=== PATIENT | female | born 1955 | race Caucasian/White ===

== ENCOUNTER → 2024-09-13 | Outpatient (CLI) | payer MEDICARE, BC, SELFPAY ==
--- NOTE | 2024-09-13 13:20 | XR_ITS ---
Examination: Bone densitometry Date and time of exam:September 13, 2024 1336 hours INDICATIONS: Menopause age [age] and vitamin D 6 weeks Technique: Lumbar spine and hip total bone mineralization values of an calculated. Peak reference and age match control results have been displayed. Findings: Lumbar spine total bone mineralization is1.412 gm/cm2. This is 3.3 standard deviations above peak reference. This is 5.4 standard deviations above age-matched controls. Hip total bone mineralization is 0.95 gm/cm2 This is 0.4 standard deviations above peak reference. This is 1.8 standard deviations above age-matched controls Impression: There is normal mineralization based on lumbar spine measurements. There is normal mineralization based on hip measurements Lumbar mineralization is increase 6.6% compared with February 08, 2015 Hip mineralization is increase 4.9% compared with February 08, 2015
== END | disposition home or self-care (01) ==
LOC: CDIM 13:05
PROVIDERS: Referring Provider Nurse Practitioner Family; Visit Provider Nurse Practitioner Family
DX: M81.0 Age-related osteoporosis without current pathological fracture (principal)
CPT/HCPCS: 77080

== ENCOUNTER → 2024-09-18 | Outpatient (CLI) | payer MEDICARE, BC, SELFPAY ==
[2024-09-25 06:53] LABS: ANA Screen, IFA NEGATIVE (NEGATIVE)
== END | disposition home or self-care (01) ==
LOC: COPL 10:55
PROVIDERS: PCP Family Medicine; Referring Provider Dermatology; Visit Provider Dermatology
DX: L71.8 Other rosacea (principal)
CPT/HCPCS: 36415; 86038

== ENCOUNTER → 2024-09-29 | Outpatient (CLI) | payer MEDICARE, BC, SELFPAY ==
--- NOTE | 2024-09-29 13:00 | XR_ITS ---
Examination: Breast ultrasound complete, bilateral Date and time of exam: September 29, 2024 at 1310 hours INDICATIONS: Mammogram August 02, 2024 12 mm oval mass 12:00 position left breast Technique: Real-time grayscale ultrasonographic imaging bilateral breasts, including all 4 quadrants as well as nipple retroareolar and axillary regions. Findings: Sonographic images right breast 2:00 oval mass circumscribed 5 x 5 mm Sonographic images left breast 12:00 cyst 12 x 13 mm 3:00 cyst 9 x 8 mm 3:00 oval mass circumscribed 4 x 3 mm IMPRESSION: BI-RADS Category 3: Probably benign findings One additional 6 month bilateral breast sonography follow-up is needed to document stability of solid nodules described
--- NOTE | 2024-09-29 14:00 | XR_ITS ---
Examination: Diagnostic digital mammography, unilateral, left Computer aided detection 3-D breast Tomosynthesis, unilateral Date and time of exam: September 29, 2024 1334 hours INDICATIONS: Mammogram August 02, 2024 12 mm oval mass indistinct margins 12:00 position left breast Technique: Nonmagnified MLO, CC views of the LEFT breast have been obtained, reconstructed from 3-D Tomosynthesis images. R2 computer aided detection program utilized for evaluation of suspicious masses and/or abnormal calcifications. 3-D Tomosynthesis images obtained. Findings: Scattered areas of fibroglandular density Circumscribed nodule 2:00 position left breast 6 mm 15 mm circumscribed nodule also 12:00 position left breast corresponding to cyst on ultrasound study today Impression: BI-RADS category BI-RADS Category 2: Benign findings Return to yearly follow-up mammography
== END | disposition home or self-care (01) ==
LOC: CDIM 12:34
PROVIDERS: PCP Family Medicine; Referring Provider Nurse Practitioner Family; Visit Provider Nurse Practitioner Family
DX: R92.322 Mammographic fibroglandular density, left breast (principal); N63.25 Unspecified lump in the left breast, overlapping quadrants; N63.12 Unspecified lump in the right breast, upper inner quadrant
CPT/HCPCS: 76641; 77061; 77065; G0279

== ENCOUNTER → 2025-08-27 | Outpatient (CLI) | payer MEDICARE, BC, SELFPAY ==
[2025-08-27 08:59] LABS: Free T4 (Free Thyroxine) 1.39 ng/dL (0.89-1.76); Thyroid Stimulating Hormone 3.80 uIU/mL (0.55-4.78)
[2025-08-27 09:09] LABS: Ferritin 81 ng/mL (7.3-270.7); Iron 70 mcg/dL (50-170); Percent Iron Saturation 21 % (20-55); Total Iron Binding Capacity 326 mcg/dL (250-425); Unsaturated Iron Binding 256 (225-295)
== END | disposition home or self-care (01) ==
LOC: COPL 07:26
PROVIDERS: PCP Family Medicine; Referring Provider Internal Medicine Cardiovascular Disease; Visit Provider Internal Medicine Cardiovascular Disease
DX: I48.21 Permanent atrial fibrillation (principal); I20.89 Other forms of angina pectoris
CPT/HCPCS: 36415; 82728; 83540; 83550; 84439; 84443

== ENCOUNTER → 2025-09-14 | Outpatient (CLI) | payer MEDICARE, BC, SELFPAY ==
[2025-09-14 08:49] LABS: Urea Breath Test Negative (Negative)
== END | disposition home or self-care (01) ==
LOC: COPL 07:26
PROVIDERS: PCP Family Medicine; Referring Provider Nurse Practitioner Family; Visit Provider Nurse Practitioner Family
DX: K21.9 Gastro-esophageal reflux disease without esophagitis (principal)
CPT/HCPCS: 83013; 83014

== ENCOUNTER → 2025-09-27 | Outpatient (CLI) | payer MEDICARE, BC, SELFPAY ==
[2025-09-27 13:51] LABS: Collection Type, Urine Clean Catch
[2025-09-27 14:20] LABS: Bacteria,Urine Rare; Bilirubin,Urine Negative (Negative); Blood,Urine Negative (Negative); Clarity,Urine Clear (Clear/Hazy); Color,Urine Yellow (Lt Yel-Yel); Glucose, Urine Negative (Negative); Ketones,Urine Negative (Negative); Leukocyte Esterase,Urine Positive (Negative); Nitrite,Urine Positive (Negative); PH,Urine 6.0 (5.0-7.0); Protein,Urine Negative (Neg - Trace); RBC,Urine 4 /hpf (0-3); Specific Gravity,Urine 1.021 (1.001-1.035); Squamous Epithelial Cell,Urine < 1 /hpf (0-5); Urobilinogen,Urine Negative mg/dL (0.0-1.0); WBC,Urine 10 /hpf (0-5)
[2025-09-27 14:22] LABS: Culture Indicated,Urine Yes
== END | disposition home or self-care (01) ==
LOC: SLDO 13:41
PROVIDERS: PCP Nurse Practitioner Family; Referring Provider Nurse Practitioner Family; Visit Provider Nurse Practitioner Family
DX: N30.00 Acute cystitis without hematuria (principal)
CPT/HCPCS: 81001; 87077; 87086; 87186